=== PATIENT | female | born 2000 | race Caucasian/White ===

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

== ENCOUNTER 2025-03-25 04:53 | Inpatient (IN) | payer BC ==
[2025-03-25] MEDS ORDERED: Sodium Chloride 0.9% 2.5 ML Syringe FLUSH PRN (05:17)
[2025-03-25] MEDS ORDERED: Lidocaine 1% 50 ML MDV INJECT PRN (05:17)
[2025-03-25] MEDS ORDERED: Ondansetron 4 MG/2 ML SDV IVPUSH PRN (05:17)
[2025-03-25] MEDS ORDERED: Water For Irrigation,Sterile 1,000 ML Container IRR PRN (05:17)
[2025-03-25] MEDS ORDERED: Butorphanol 1 MG/ML SDV IVPUSH PRN (05:17)
[2025-03-25] MEDS ORDERED: Sodium Chloride 0.9% 20 ML SDV IV PRN (05:17)
[2025-03-25] MEDS ORDERED: Misoprostol 200 MCG Tab RECTAL PRN (05:17)
[2025-03-25] MEDS ORDERED: Carboprost Tromethamine 250 MCG/1 mL Vial IM PRN (05:17)
[2025-03-25] MEDS ORDERED: Methylergonovine 0.2 MG/1 ML Amp IM PRN (05:17)
[2025-03-25] MEDS ORDERED: Sodium Chloride 0.9% 10 ML Syringe FLUSH PRN (05:17)
[2025-03-25] MEDS ORDERED: Ampicillin 2 GM Vial ONE (05:24)
[2025-03-25] MEDS ORDERED: Lactated Ringers 1,000 ML IV SCH (05:30)
[2025-03-25] MEDS: Ampicillin 2 GM in Sodium Chloride 0.9% 100 ML IV ONE (05:30)
[2025-03-25] MEDS: Oxytocin/0.9 % Sodium Chloride 30 UNIT/500 ML BAG IV SCH (05:58)
[2025-03-25 06:22] LABS: HEMATOCRIT 36.6 % (37.0-47.0); HEMOGLOBIN 12.6 g/dL (12.0-16.0); MEAN CORPUSCULAR HEMOGLOBIN 28.1 pg (28.0-32.0); MEAN CORPUSCULAR HGB CONC 34.4 g/dL (32.0-36.0); MEAN CORPUSCULAR VOLUME 81.7 fL (83.0-99.0); MEAN PLATELET VOLUME 10.3 fL (9.4-12.3); PLATELET COUNT,PLT 181 K/uL (150-400); RED BLOOD CELL COUNT 4.48 M/uL (4.10-5.30); WHITE BLOOD CELL COUNT,WBC 13.06 K/uL (3.9-11.3)
[2025-03-25] MEDS ORDERED: Benzocaine/Menthol 20%-0.5% Spray 78 GM Cannister ONE (07:35)
[2025-03-25] MEDS ORDERED: Witch Hazel Medicated Pads 40/Jar TOP ONE (07:35)
[2025-03-25] MEDS ORDERED: ePHEDrine 50 MG/ML SDV IVPUSH PRN (07:40)
[2025-03-25] MEDS ORDERED: Phenylephrine HCl In 0.9% NaCl 1 MG/10 ML Syringe IVPUSH PRN (07:40)
[2025-03-25] MEDS ORDERED: Ropivacaine HCl/PF 400 MG in Premix Bag 1 BAG EPIDUR SCH (07:45)
[2025-03-25] MEDS ORDERED: dexmedeTOMIDine HCl 200 MCG/2 ML SDV EPIDUR SCH (07:45)
[2025-03-25] MEDS ORDERED: Ampicillin 1 GM in Sodium Chloride 0.9% 50 ML IV SCH (09:30)
[2025-03-26] MEDS ORDERED: Lanolin 100% Cream 7 GM Tube TOP PRN (00:10)
[2025-03-26] MEDS ORDERED: Docusate Sodium 100 MG Cap PO PRN (00:10)
[2025-03-26] MEDS ORDERED: Witch Hazel Medicated Pads 40/Jar TOP PRN (00:10)
[2025-03-26] MEDS ORDERED: Ibuprofen 800 MG Tab PO PRN (00:10)
[2025-03-26] MEDS ORDERED: Benzocaine/Menthol 20%-0.5% Spray 78 GM Cannister TOP PRN (00:10)
[2025-03-26] MEDS: Acetaminophen 500 MG Tab PO PRN (00:41)
[2025-03-26 05:55] LABS: HEMATOCRIT 31.2 % (37.0-47.0); HEMOGLOBIN 10.6 g/dL (12.0-16.0)
== END 2025-03-27 13:55 | disposition home or self-care (01) | DRG 560 ==
LOC: MW.OBCHECK 04:53 → MW.OB 05:17 → OBSVTOIN 05:50 → MW.OB 05:50
PROVIDERS: ADMIT Obstetrics & Gynecology Obstetrics; ATTEND Obstetrics & Gynecology Obstetrics
PROC: 10E0XZZ Delivery of Products of Conception, External Approach (ICD-10-PCS; principal; 2025-03-25)
PROC: 30233S1 Transfusion of Nonautologous Globulin into Peripheral Vein, Percutaneous Approach (ICD-10-PCS; 2025-03-25)
DX: O48.0 Post-term pregnancy (principal); Z3A.41 41 weeks gestation of pregnancy; Z37.0 Single live birth; O90.81 Anemia of the puerperium; Z79.899 Other long term (current) drug therapy; Z67.21 Type B blood, Rh negative; O99.824 Streptococcus B carrier state complicating childbirth
CPT/HCPCS: 36415; 36430; 59025; 59409; 85014; 85018; 85027; 85460; 86592; 86850; 86900; 86901; A9270-GY; J0290; J2590; J2791